=== PATIENT | female | born 2000 | race Caucasian/White ===

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

== ENCOUNTER 2018-06-15 22:59 | Emergency (ER) | payer OTHER ==
[~2018-06-15] VITALS: Ht 152.4 cm; Wt 59.0 kg
[2018-06-15 23:23] VITALS: Ht 152.4 cm; Wt 59.0 kg
[2018-06-16 00:21] VITALS: BP 111/69
== END 2018-06-16 00:21 | disposition home or self-care (01) ==
LOC: ED 22:59
DX: O26.892 Other specified pregnancy related conditions, second trimester (principal); M54.5 Low back pain